=== PATIENT | female | born 1950 | race Caucasian/White ===

== ENCOUNTER → 2017-07-23 | Emergency (ER) | payer OTHER ==
[~2017-07-23] VITALS: Ht 165.1 cm; Wt 77.1 kg
[~2017-07-23] MED LIST: AVAPRO300 MG; HYDROCHLOROTHIA50 MG; LEVEMIR100 UNIT/1; LIPITOR20 MG; PACERONE200 MG; PLAVIX75 MG; SYNTHROID75 MCG; ZOLOFT25 MG
== END | disposition home or self-care (01) ==
LOC: ER 10:56
DX: S60.212A Contusion of left wrist, initial encounter (principal); W18.09XA Striking against other object with subsequent fall, initial encounter; Y93.01 Activity, walking, marching and hiking; Y92.488 Other paved roadways as the place of occurrence of the external cause; Y99.8 Other external cause status

== ENCOUNTER 2021-04-24 09:54 | Outpatient (CLI) | payer OTHER | END 2021-04-24 10:12 | disposition home or self-care (01) | LOC: LAB 09:54 | PROVIDERS: ATTEND Orthopaedic Surgery | DX: M75.82 Other shoulder lesions, left shoulder (principal); I10 Essential (primary) hypertension; I49.8 Other specified cardiac arrhythmias; D64.89 Other specified anemias; E88.89 Other specified metabolic disorders; D68.8 Other specified coagulation defects; N39.0 Urinary tract infection, site not specified; Z22.322 Carrier or suspected carrier of Methicillin resistant Staphylococcus aureus; E13.69 Other specified diabetes mellitus with other specified complication; Z76.89 Persons encountering health services in other specified circumstances ==

== ENCOUNTER 2021-05-03 08:00 | Outpatient (CLI) | payer OTHER ==
[2021-05-03] MEDS ORDERED: RALOXIFENE HCL60 MG PO (15:57)
[2021-05-03] MEDS ORDERED: PREVACID30 MG PO (15:57)
[2021-05-03] MEDS ORDERED: COZAAR100 MG PO (15:58)
== END 2021-05-23 08:00 | disposition home or self-care (01) ==
LOC: LAB 08:00 → ADM 10:45 → CIR.AMB 05-08 07:00 → EDSTATUS 05-08 10:45 → CIR.AMB 05-08 10:45 → LAB 05-23 08:00
PROVIDERS: ATTEND Orthopaedic Surgery
DX: Z03.818 Encounter for observation for suspected exposure to other biological agents ruled out (principal)

== ENCOUNTER 2021-05-03 08:41 | Outpatient (CLI) | payer OTHER ==
[2021-05-03] MEDS ORDERED: PREVACID30 MG PO (15:57)
[2021-05-03] MEDS ORDERED: RALOXIFENE HCL60 MG PO (15:57)
[2021-05-03] MEDS ORDERED: COZAAR100 MG PO (15:58)
== END 2021-05-03 08:50 | disposition home or self-care (01) ==
LOC: LAB 08:41
PROVIDERS: ATTEND Orthopaedic Surgery
DX: M06.4 Inflammatory polyarthropathy (principal); D64.9 Anemia, unspecified

== ENCOUNTER 2021-06-05 09:34 | Outpatient (CLI) | payer OTHER ==
[~2021-06-05 09:34] MED LIST changes: +COZAAR100 MG PO; +PREVACID30 MG PO; +RALOXIFENE HCL60 MG PO
== END 2021-06-05 09:42 | disposition home or self-care (01) ==
LOC: LAB 09:34
PROVIDERS: ATTEND Orthopaedic Surgery
DX: D64.9 Anemia, unspecified (principal); E88.9 Metabolic disorder, unspecified; D68.8 Other specified coagulation defects; N39.0 Urinary tract infection, site not specified; E11.9 Type 2 diabetes mellitus without complications; A49.02 Methicillin resistant Staphylococcus aureus infection, unspecified site; I10 Essential (primary) hypertension

== ENCOUNTER 2021-06-12 06:13 | Day surgery (SDC) | payer OTHER | END 2021-06-12 13:15 | disposition home or self-care (01) | LOC: CIR.AMB 06:13 | PROVIDERS: ATTEND Orthopaedic Surgery | DX: M21.621 Bunionette of right foot (principal); Z88.0 Allergy status to penicillin; Z88.8 Allergy status to other drugs, medicaments and biological substances; Z91.013 Allergy to seafood; I10 Essential (primary) hypertension; E11.9 Type 2 diabetes mellitus without complications; Z85.850 Personal history of malignant neoplasm of thyroid; G43.909 Migraine, unspecified, not intractable, without status migrainosus; J32.9 Chronic sinusitis, unspecified ==

== ENCOUNTER 2021-07-11 12:05 | Outpatient (CLI) | payer OTHER | END 2021-07-11 12:09 | disposition home or self-care (01) | LOC: RAD 12:05 | PROVIDERS: ATTEND Orthopaedic Surgery | DX: M21.621 Bunionette of right foot (principal) ==

== ENCOUNTER → 2021-07-20 08:14 | Outpatient (CLI) | payer OTHER | END | disposition home or self-care (01) | LOC: LAB 08:14 | PROVIDERS: ATTEND Orthopaedic Surgery | DX: D64.9 Anemia, unspecified (principal); M06.4 Inflammatory polyarthropathy ==